=== PATIENT | female | born 1995 | race Two or more races ===

== ENCOUNTER 2019-11-02 16:35 | Emergency (ER) | payer OTHER ==
[~2019-11-02] VITALS: Ht 172.7 cm; Wt 95.3 kg
[2019-11-02 16:58] VITALS: BP 115/72
[2019-11-02] MEDS ORDERED: KETOROLAC TROMETH 60MG/2ML VIAL IM ONE (17:45)
== END 2019-11-02 18:00 | disposition home or self-care (01) ==
LOC: ER 16:35
DX: L03.116 Cellulitis of left lower limb (principal)
CPT/HCPCS: 96372; 99283; J1885